=== PATIENT | male | born 1980 | race African-American/Black ===

== ENCOUNTER 2022-12-28 02:47 | Inpatient (IN) | payer OTHER ==
[2022-12-28] MEDS ORDERED: NA CHLORIDE 0.9% 1,000 ML ONE (03:20)
[2022-12-28 03:31] LABS: Hematocrit 37.5 % (39.6-49.0); MCV 83.7 fL (80-100); MPV 8.1 fL (7.6-11.3); RBC Red Blood Cell Count 4.48 M/uL (4.33-5.43)
[2022-12-28 03:34] LABS: Protime INR 1.13
[2022-12-28 03:59] LABS: ALT/SGPT 24 U/L (16-61); AST/SGOT 15 U/L (15-37); Albumin 3.9 g/dL (3.4-5.0); Alkaline Phosphatase 60 U/L (45-117); BUN Blood Urea Nitrogen 33 mg/dL (7-18); Bicarbonate 29 mEq/L (21-32); Bilirubin Total 0.3 mg/dL (0.2-1.0); Glomerular Filtration Rate 53 ml/min (=/>90); Glucose Level 137 mg/dL (74-106); Potassium 4.3 mEq/L (3.5-5.1); Protein, Total 8.5 g/dL (6.4-8.2); Sodium Level 132 mEq/L (136-145)
[2022-12-28 04:01] LABS: Bilirubin Direct < 0.1 mg/dL (0-0.2); Bilirubin Indirect, Calculated ND mg/dL (0.2-0.8)
[2022-12-28 04:29] LABS: Specific Gravity 1.016 (1.005-1.030); Urine Bacteria None Seen /HPF (<20); Urine Bilirubin NEGATIVE (Negative); Urine Blood 1+ (Negative); Urine Clarity Clear (Clear); Urine Color Light-Yellow (Yellow); Urine Glucose NEGATIVE (Negative); Urine Mucus Slight /HPF (None Seen); Urine Protein NEGATIVE (Negative); Urine Urobilinogen Normal (Normal); Urine pH 5.5 (5.0-7.0)
[2022-12-28 04:41] LABS: Barbiturates NEGATIVE (NEGATIVE); Benzodiazepines NEGATIVE (NEGATIVE); Cocaine NEGATIVE (NEGATIVE); METHAMPHETAM NEGATIVE (NEGATIVE); Methadone NEGATIVE (NEGATIVE); Opiates NEGATIVE (NEGATIVE); Phencyclidine NEGATIVE (NEGATIVE); THC Cannibis NEGATIVE (NEGATIVE)
--- NOTE | 2022-12-28 05:48 | EDPHYS ---
Physician Documentation [facility] Name: Flako Montesinos Age: 42 yrs Sex: Male : 1980 Arrival Date: 12/28/2022 Time: 02:47 Bed 2 Private MD: ED Physician Andrade Williamson HPI: 12/28 02:58 This 42 yrs old Black Male presents to ER via EMS with complaints of Lethargy. sp4 02:58 42-year-old black male presents with lethargy and poor responsiveness. Patient was sp4 found on his bunk bed last known normal about yesterday. Patient is responsive to painful stimuli but is nonverbal, HPI and ROS are limited secondary to patient's poor responsiveness. . Historical: - Allergies: 02:50 Unable to obtain; as6 - PMHx: 02:50 Unable to Obtain; as6 - Immunization history:: Adult Immunizations up to date. - Social history:: Smoking status: unknown. - Family history:: not pertinent. ROS: 02:58 Constitutional: Negative for fever, chills, and weight loss. sp4 02:58 All other systems are negative. 02:58 Unable to obtain ROS due to altered mental status. Exam: 02:58 Constitutional: This is a well developed, well nourished , and in no acute distress. sp4 Patient is responsive to pain and withdraws from pain. Handcuffs and leg irons are in place . Patient is dressed up in the skilled nursing garb. Head/Face: Normocephalic, atraumatic. Eyes: Pupils equal round and reactive to light, extra-ocular motions intact. Lids and lashes normal. Conjunctiva and sclera are not injected. Cornea within normal limits. Periorbital areas with no swelling, redness, or edema. ENT: Nares patent. No nasal discharge, no septal abnormalities noted. Tympanic membranes are normal and external auditory canals are clear. Oropharynx with no redness, swelling, or masses, exudates, or evidence of obstruction, uvula midline. Mucous membranes moist. Neck: Trachea midline, no thyromegaly or masses palpated, and no cervical lymphadenopathy. Supple, full range of motion without nuchal rigidity, or vertebral point tenderness. No Meningismus. Chest/axilla: Normal chest wall appearance and motion. Nontender with no deformity. No lesions are appreciated. Cardiovascular: Irregular rate. No gallops, murmurs, or rubs. Normal PMI, no JVD. No pulse deficits. Respiratory: Lungs have equal breath sounds bilaterally, clear to auscultation and percussion. No rales, rhonchi or wheezes noted. No increased work of breathing, no retractions or nasal flaring. Abdomen/GI: Soft, non-tender, with normal bowel sounds. No distension or tympany. No guarding or rebound. No evidence of tenderness throughout. Small umbilical hernia Back: No spinal tenderness. No costovertebral tenderness. Skin: Warm, dry with normal turgor. Normal color with no rashes, no lesions, and no evidence of cellulitis. MS/ Extremity: Pulses equal, no cyanosis. Neurovascular intact. Exam is limited secondary to obtunded state Neuro: Exam limited secondary to lethargic state, patient is responsive to painful stimuli 03:05 ECG was reviewed by the Attending Physician. Heart rate 70. Atrial fibrillation at the sp4 rate of 70. Premature ventricular complexes. Vital Signs: 02:51 BP 131 / 80; Pulse 88; Resp 12 S; Pulse Ox 96% on R/A; Weight 125 kg (M); as6 04:00 BP 134 / 75; Pulse 69; Resp 17 S; Pulse Ox 98% on 2 lpm NC; aa9 05:19 BP 123 / 75; Pulse 76; Resp 10 S; Pulse Ox 99% on 2 lpm NC; as6 05:20 Temp 97.3(TE); as6 07:00 BP 131 / 92; Pulse 63; Resp 10; Pulse Ox 95% ; bp Josette Coma Score: 02:58 Eye Response: to pain(2). Motor Response: withdraws from pain(4). Verbal Response: sp4 none(1). Total: 7. MDM: 03:05 Patient medically screened. sp4 05:41 Differential Diagnosis altered mental status, sepsis, flu. Data reviewed: vital signs, sp4 nurses notes, lab test result(s), EKG, radiologic studies, CT scan, ultrasound. 05:42 Consideration of Admission/Observation Patient was admitted/placed on observation. sp4 Escalation of care including admission/observation considered. Management of patient was discussed with the following: Hospitalist: Will discuss with [facility] hospitalist. ED course: CT head and C-spine reveals no acute intracranial hemorrhage. Unremarkable CT of the head without contrast. Chest x-ray revealed decreased lung volumes. Overcrowding pulmonary markings could be related to decreased lung volume. No definite focal areas of airspace consolidation. . 05:44 ED course: Laboratory evaluation revealed elevated creatinine. But otherwise no sp4 remarkable findings. Normal CBC. Exam reveals no neck stiffness, patient is able to move his hands and the also able to move his feet, remains nonverbal, no focal neurologic deficits on exam. Suspect poor cooperation with examination. . ED course: Since patient remains poorly responsive and nonverbal we will pursue transfer to [facility] for further evaluation consideration of MRI of the brain and EEG. Also consultation with neurologist.. 12/28 03:04 Order name: Acetaminophen; Complete Time: 05:34 sp4 12/28 03:04 Order name: Basic Metabolic Panel; Complete Time: 05:34 sp4 12/28 03:04 Order name: CBC with Diff; Complete Time: 05:34 sp4 12/28 03:04 Order name: ETOH Level; Complete Time: 05:34 sp4 12/28 03:04 Order name: Hepatic Function; Complete Time: 05:34 sp4 12/28 03:04 Order name: PT-INR; Complete Time: 05:34 sp4 12/28 03:04 Order name: Ptt, Activated; Complete Time: 05:34 sp4 12/28 03:04 Order name: Salicylate; Complete Time: 05:34 sp4 12/28 03:04 Order name: Urinalysis w/ reflexes; Complete Time: 05:34 sp4 12/28 03:04 Order name: Urine Drug Screen; Complete Time: 05:34 sp4 12/28 05:40 Order name: ABG; Complete Time: 06:05 sp4 12/28 05:42 Order name: SARS RAPID; Complete Time: 06:37 sp4 12/28 05:42 Order name: Influenza Screen (a \T\ B); Complete Time: 06:37 sp4 12/28 06:49 Order name: CBC with Automated Diff EDMS 12/28 06:49 Order name: CBC with Automated Diff EDMS 12/28 06:49 Order name: Comprehensive Metabolic Panel EDMS 12/28 06:49 Order name: Comprehensive Metabolic Panel EDMS 12/28 06:49 Order name: Lipid Profile EDMS 12/28 06:49 Order name: Lipid Profile [facility] 12/28 06:49 Order name: Magnesium [facility] 12/28 06:49 Order name: Magnesium [facility] 12/28 06:49 Order name: Phosphorus [facility] 12/28 06:49 Order name: Phosphorus [facility] 12/28 06:49 Order name: T4,Total EDMS 12/28 06:49 Order name: T4,Total [facility] 12/28 06:49 Order name: Thyroid Stimulating Hormone [facility] 12/28 06:49 Order name: Thyroid Stimulating Hormone [facility] 12/28 06:49 Order name: Troponin High Sensitivity [facility] 12/28 06:49 Order name: Troponin High Sensitivity [facility] 12/28 03:04 Order name: CT Head C Spine [facility] 12/28 03:04 Order name: Chest Single View XRAY [facility] 12/28 06:49 Order name: Echo with Doppler [facility] 12/28 03:04 Order name: EKG; Complete Time: 03:04 [facility] 12/28 06:49 Order name: Physical Therapy Consult [facility] 12/28 06:49 Order name: Speech Therapy Consult [facility] 12/28 06:49 Order name: NPO [facility] 12/28 06:49 Order name: EKG Electrocardiogram [facility] 12/28 06:49 Order name: EKG Electrocardiogram [facility] 12/28 03:04 Order name: EKG - Nurse/Tech; Complete Time: 03:04 4 12/28 03:04 Order name: IV Saline Lock; Complete Time: 03:04 4 12/28 03:04 Order name: Labs collected and sent; Complete Time: 03:09 EC:05 Rate is 70 beats/min. Rhythm is irregularly irregular, A fib with Occasional PVCs. QRS sp4 [place] is Normal. No ST changes noted. Clinical impression: Atrial Fibrillation. Interpreted by me. Administered Medications: 03:15 Drug: NS 0.9% IV 1000 ml Route: IV; Rate: 1 bolus; Site: right antecubital; as6 09:12 Follow up: IV Status: Completed infusion; IV Intake: 1000ml bp 05:48 Drug: Keppra IV 1000 mg Route: IV; Rate: bolus; Site: right antecubital; as6 09:12 Follow up: IV Status: Completed infusion; IV Intake: 100ml bp 07:15 Drug: NS 0.9% IV 1000 ml Route: IV; Rate: 125 ml/hr; Site: right antecubital; bp 09:12 Follow up: IV Status: Infusion continued upon admission bp Disposition Summary: 12/28/22 06:45 Hospitalization Ordered Hospitalization Status: Inpatient Admission sp4 Provider: Aimee Neal Location: Telemetry/MedSur (Inpatient) sp4 Condition: Stable(12/28/22 06:45) sp4 Problem: new(12/28/22 06:45) sp4 Symptoms: have improved(12/28/22 06:45) sp4 Bed/Room Type: Standard sp4 Room Assignment: [facility](12/28/22 13:58) dw Diagnosis - Altered mental status, unspecified(12/28/22 06:45) sp4 - Dehydration sp4 - Acute onset lethargy, acute metabolic encephalopathy sp4 Forms: - Medication Reconciliation Form sp4 - SBAR form sp4 Signatures: Dispatcher [employer] EDIvone Vasques RN RN dw Deni Fatima RN RN bp Slawson, Ashby, RN RN as6 Andrade Williamson MD MD sp4 Corrections: (The following items were deleted from the chart) 06:06 03:04 Suicide Screening ([place]) ordered. sp4 as6 06:44 05:47 Attending [facility] sp4 sp4 06:44 05:47 [facility]-System sp4 sp4 06:44 05:47 Higher level of care sp4 sp4 06:44 05:47 Stable sp4 sp4 06:44 05:47 new sp4 sp4 06:44 05:47 have improved sp4 sp4 06:44 05:47 Altered mental status, unspecified sp4 sp4 06:44 05:47 Lethargy, acute onset sp4 sp4 13:58 06:45 sp4 dw
--- NOTE | 2022-12-28 05:48 | ER ---
Nurse's Notes [facility] Name: Flako Montesinos Age: 42 yrs Sex: Male : 1980 Arrival Date: 12/28/2022 Time: 02:47 Bed 2 Private MD: Diagnosis: Altered mental status, unspecified;Dehydration;Acute onset lethargy, acute metabolic encephalopathy Presentation: 12/28 02:51 Chief complaint: EMS states: called out for unresponsive. unknown last known normal, pt as6 is responsive to painful stimuli. pt is an inmate, in handcuffs with guards at bedside. Coronavirus screen: At this time, the client does not indicate any symptoms associated with coronavirus-19. Ebola Screen: No symptoms or risks identified at this time. Initial Sepsis Screen: Does the patient meet any 2 criteria? No. Patient's initial sepsis screen is negative. Does the patient have a suspected source of infection? No. Patient's initial sepsis screen is negative. Risk Assessment: Do you want to hurt yourself or someone else? Patient reports no desire to harm self or others. Onset of symptoms is unknown. 02:51 Acuity: OCTAVIO 2 as6 02:51 Method Of Arrival: EMS: [facility] as6 Historical: - Allergies: 02:50 Unable to obtain; as6 - PMHx: 02:50 Unable to Obtain; as6 - Immunization history:: Adult Immunizations up to date. - Social history:: Smoking status: unknown. - Family history:: not pertinent. Screenin:10 [facility] ED Fall Risk Assessment (Adult) Score/Fall Risk Level 0 - 2 = Low Risk. Abuse as6 screen: Denies threats or abuse. Denies injuries from another. Nutritional screening: No deficits noted. Tuberculosis screening: No symptoms or risk factors identified. Assessment: 03:15 General: Appears in no apparent distress. Behavior is drowsy, quiet. Pain: Unable to as6 use pain scale. FLACC scale score is 0 out of 10. Neuro: Level of Consciousness is obtunded, Pupils are dilated. Cardiovascular: Capillary refill < 3 seconds Patient's skin is warm and dry. Cardiovascular: Rhythm is atrial fibrillation With PVC's. Respiratory: Respiratory effort is even, unlabored, Respiratory pattern is regular, symmetrical. 07:00 Reassessment: RECD REPORT FROM ARNEL PURVIS. 42YO BM P/W AMS AND DECREASED LOC. ADMIT IN bp PROCESS. Vital Signs: 02:51 BP 131 / 80; Pulse 88; Resp 12 S; Pulse Ox 96% on R/A; Weight 125 kg (M); as6 04:00 BP 134 / 75; Pulse 69; Resp 17 S; Pulse Ox 98% on 2 lpm NC; aa9 05:19 BP 123 / 75; Pulse 76; Resp 10 S; Pulse Ox 99% on 2 lpm NC; as6 05:20 Temp 97.3(TE); as6 07:00 BP 131 / 92; Pulse 63; Resp 10; Pulse Ox 95% ; bp Josette Coma Score: 02:58 Eye Response: to pain(2). Motor Response: withdraws from pain(4). Verbal Response: sp4 none(1). Total: 7. ED Course: 02:48 Patient arrived in ED. aa9 02:50 Arnel Gonzales, RN is Primary Nurse. as6 02:50 Arm band placed on. as6 02:54 Triage completed. as6 02:54 Bed in low position. Call light in reach. Side rails up X2. as6 02:58 Andrade Williamson MD is Attending Physician. sp4 03:10 Maintain EMS IV. Dressing intact. Good blood return noted. Site clean \T\ dry. Gauge \T\ as 6 site: 20g RAC. 03:16 Chest Single View XRAY In Process Unspecified. EDMS 03:34 CT Head C Spine In Process Unspecified. EDMS 04:17 Hayes cath inserted, using sterile technique, 16 Fr., by cafe site attendant, balloon inflated, to aa9 gravity drainage, urine specimen collected. returned clear yellow urine. Patient tolerated well. 05:50 Initiated transfer with [facility]. rv1 06:09 Influenza Screen (a \T\ B) Sent. aa9 06:09 SARS RAPID Sent. aa9 06:44 Aimee Neal MD is Hospitalizing Provider. sp4 09:11 Primary Nurse role handed off by Arnel Gonzales, YANIV eb 09:11 Deni Fatima, YANIV is Primary Nurse. bp 14:14 No provider procedures requiring assistance completed. Patient admitted, IV remains in bp place. Administered Medications: 03:15 Drug: NS 0.9% IV 1000 ml Route: IV; Rate: 1 bolus; Site: right antecubital; as6 09:12 Follow up: IV Status: Completed infusion; IV Intake: 1000ml bp 05:48 Drug: Keppra IV 1000 mg Route: IV; Rate: bolus; Site: right antecubital; as6 09:12 Follow up: IV Status: Completed infusion; IV Intake: 100ml bp 07:15 Drug: NS 0.9% IV 1000 ml Route: IV; Rate: 125 ml/hr; Site: right antecubital; bp 09:12 Follow up: IV Status: Infusion continued upon admission bp Medication: 02:54 VIS not applicable for this client. as6 Intake: 09:12 IV: 100ml; Total: 100ml. bp 09:12 IV: 1000ml; Total: 1100ml. bp Outcome: 05:47 ER care complete, transfer ordered by . sp4 06:45 Decision to Hospitalize by Provider. sp4 14:19 Admitted to Med/surg accompanied by tech, via stretcher, room 224, Report called to bp RANJANA PURVIS 14:19 Condition: stable 14:19 Instructed on the need for admit. 15:48 Patient left the ED. bp Signatures: Dispatcher [employer] EDDeni Gibson RN RN Philomena Hoang Ashby RN RN as6 Doreen Chávez, RN RN clint9 Jimmy, Lily [email or web address] Andrade Williamson MD MD sp4
[2022-12-28] MEDS ORDERED: NA CHLORIDE 0.9% 100 ML ONE (05:50)
[2022-12-28] MEDS ORDERED: LEVETIRACETAM 500 MG/5 ML VIAL IV ONE (05:50)
[2022-12-28 05:51] LABS: Arterial Blood Carboxyhemoglob 0.7 % (0-1.5); Blood Gas Oxyhemoglobin 95.2 % (94-97); Blood O2 Saturation 97.1 % (92-98.5)
[2022-12-28 06:34] LABS: SARS-CoV-2 Antigen Rapid Res Negative (Negative)
[2022-12-28] MEDS ORDERED: ONDANSETRON 4 MG/2 ML VIAL IV PRN (06:43)
[2022-12-28] MEDS ORDERED: IPRATROPIUM BROM 0.5MG/2.5ML NEB PRN (06:43)
[2022-12-28] MEDS ORDERED: ALBUTEROL 2.5 MG/3 ML NEB SOL NEB PRN (06:43)
[2022-12-28] MEDS: NA CHLORIDE 0.9% 1,000 ML IV SCH ×3 (07:00→20:03)
--- NOTE | 2022-12-28 07:25 | EKG ---
Test Date: 2022-12-28 Test Time: 02:51:13 Circuit Walker: WILFRIDO MEASUREMENT RESULTS: Intervals: Rate: 70 [place]: QRSD: 114 QT: 398 QTc: 429 [place]: P: [place]: QRS: 28 T: 17 INTERPRETIVE STATEMENTS: Atrial fibrillation with premature ventricular or aberrantly conducted complexes Abnormal ECG No previous ECG available for comparison Electronically Signed On 12-28-22 07:25:03 CDT by David Moon
[2022-12-28] MEDS: ASPIRIN EC 81 MG TAB PO SCH (09:00)
[2022-12-28 09:41] VITALS: BMI 5370.1
[2022-12-28] MEDS ORDERED: RIVAROXABAN 15 MG TABLET PO SCH (17:00)
[2022-12-28] MEDS ORDERED: ATORVASTATIN 20 MG TAB PO SCH (21:00)
[2022-12-29] MEDS: NA CHLORIDE 0.9% 1,000 ML IV SCH ×2 (05:12→09:40)
[2022-12-29 06:08] LABS: Absolute Lymphocytes (CBC) 1.4 K/uL (0.7-4.9); Hematocrit 42.1 % (39.6-49.0); Lymphocytes % 14.9 % (15.3-44.8); MCV 83.7 fL (80-100); MPV 8.4 fL (7.6-11.3); RBC Red Blood Cell Count 5.03 M/uL (4.33-5.43)
[2022-12-29 06:38] LABS: Albumin 3.8 g/dL (3.4-5.0); Bilirubin Total 0.6 mg/dL (0.2-1.0); Magnesium 2.5 mg/dL (1.6-2.4); Phosphorus 1.9 mg/dL (2.5-4.9); Potassium 3.8 mEq/L (3.5-5.1); Protein, Total 8.1 g/dL (6.4-8.2); T4,Total 10.7 ug/dL (4.5-12.1); Thyroid Stimulating Hormone 3.2 uIU/mL (0.358-3.740)
[2022-12-29 06:47] VITALS: BP 147/91; TEMP 97.5
[2022-12-29] MEDS: ASPIRIN EC 81 MG TAB PO SCH (09:00)
[2022-12-29] MEDS ORDERED: POTASSIUM CL SA 10 MEQ TAB PO ONE (09:00)
[2022-12-29] MEDS ORDERED: ENOXAPARIN 40 MG/0.4 ML SQ SCH (09:00)
[2022-12-29] MEDS: POTASS/SODIUM PHOSPHATE 1 PKT POWD.PACK PO SCH ×2 (09:01→09:02)
--- NOTE | 2022-12-29 09:05 | P.HP ---
Certification for Inpatient Patient admitted to: Inpatient With expected LOS: >2 Midnights Patient will require the following post-hospital care: None Practitioner: I am a practitioner with admitting privileges, knowledge of patient current condition, hospital course, and medical plan of care. Services: Services provided to patient in accordance with Admission requirements found in Title 42 Section 412.3 of the Code of Federal Regulations Patient History Date of Service: 12/28/22 Reason for admission: Altered mental status History of Present Illness: Patient is a 42-year-old gentleman came to the hospital with altered mentation. Patient is in usp and he is not waking up. Patient very lethargic. He seems to be fairly aware what is going on but then he becomes very obtunded. He does not really follow much commands well. But he does keep his arms up in the air and he make sure he moves him to where it does not hit him in the face. Patient was brought in from the usp. Patient was admitted to the hospital for further evaluation. Allergies Unable to Assess Allergy (Verified 12/28/22 09:33) Home Medications: Unobtainable 12/28/22 - Past Medical/Surgical History Past Medical History: Unable to obtain Past Surgical History: Unable to obtain - Family History Father Family History: Reviewed- Non-Contributory - Social History Smoking Status: Unknown if ever smoked Alcohol use: No CD- Drugs: No Place of Residence: Home Review of Systems is unable to be obtained Physical Examination - Vital Signs Temperature: 97.5 F Blood Pressure: 147/91 Pulse: 65 Respirations: 16 Pulse Ox (%): 98 - Physical Exam General: Other (unresponsive) HEENT: Atraumatic, PERRLA, Mucous membr. moist/pink, EOMI, Sclerae nonicteric Neck: Supple, 2+ carotid pulse no bruit, No LAD, Without JVD or thyroid abnormality Respiratory: Clear to auscultation bilaterally, Normal air movement Cardiovascular: Regular rate/rhythm, Normal S1 S2 Gastrointestinal: Normal bowel sounds, No tenderness Musculoskeletal: No tenderness Integumentary: No rashes Neurological: Other (Unable to examine) Lymphatics: No axilla or inguinal lymphadenopathy - Studies Microbiology Data (last 24 hrs): 12/28/22 06:09 Nasopharnyx Influenza Type A Antigen Screen - Final 12/28/22 06:09 Nasopharnyx Influenza Type B Antigen Screen - Final Assessment & Plan - Problems (Diagnosis) (1) Altered mental status Current Visit: Yes Status: Acute - Plan 1. MRI of the brain 2. Antiplatelet and statin therapy 3. Lipid profile 4. Physical therapy and speech therapy consultation 5. DVT prophylaxis 6. Neurochecks every 4 hours 7. Reassess stroke scale 8. GI and DVT prophylaxis Discharge Plan: Other Plan to discharge in: Greater than 2 days - Advance Directives Does patient have a Living Will: No Does patient have a Durable POA for Healthcare: No - Code Status/Comfort Care Code Status Assessed: Yes Code Status: Full Code Critical Care: No Time Spent Managing PTS Care (In Minutes): 45
[2022-12-29 11:16] VITALS: O2SAT 99
--- NOTE | 2022-12-29 13:04 | RAD REPORT ---
EXAM DESCRIPTION: CT - Head C Spine Mpr Wo Con - 12/28/2022 6:40 am CLINICAL HISTORY: 42 years, Male, CONFUSED COMPARISON: None. FINDINGS: Multiple transaxial tomograms of the brain were obtained from the base of the skull to the vertex without contrast. 2-D multiplanar reformats and the coronal and sagittal plane were performed and reviewed. This exam was performed according to our departmental dose-optimization protocol, which includes auto mated exposure control, adjustment of the mA and/or kV according to patient size and/or use of iterat marlin reconstruction technique. Brain parenchyma as well as the jennings and white matter differentiation demonstrate to be unremarkable. There is no midline shift and/or mass effect. There is no evidence for acute hemorrhage. There are n o focal areas of hypodensities. Lateral ventricles and cisterns displace normal appearance. No intr a or extra axial fluid collections were seen. The calvarium is intact with no evidence for fracture. The visualized portions of the paranasal sinuses and orbits demonstrate to be clear. IMPRESSION: No acute intracranial hemorrhage identified. Unremarkable CT scan of the head without contrast. Electronically signed by: Fei Bajwa MD 12/28/2022 4:03 AM CDT Due to temporary technical issues with the PACS/Fluency reporting system, reports are being signed by the in house radiologists without review as a courtesy to insure prompt reporting. The interpreting radiologist is fully responsible for the content of the report.
--- NOTE | 2022-12-29 13:06 | RAD REPORT ---
EXAM DESCRIPTION: RAD - Chest Single View - 12/28/2022 3:14 am CLINICAL HISTORY: 42 years, Male, syncope COMPARISON: None. FINDINGS: Single view of the chest was obtained portable. No prior films are available for compariso n. Day lung volume is decreased. The cardiomediastinal silhouette demonstrate to be unremarkable. The heart is not enlarged. The thoracic aorta is unremarkable. Overcrowding pulmonary markings could be related to decreased lung volume. No significant pleural effusions. No areas of consolidation or mass es are seen. The rest of the soft tissue and bony structures demonstrate to be unremarkable. IMPRESSION: Decreased lung volume. Overcrowding pulmonary markings could be related to decreased lung volume. No definitive focal areas of acute airspace disease. Electronically signed by: Fei Bajwa MD 12/28/2022 4:02 AM CDT Due to temporary technical issues with the PACS/Fluency reporting system, reports are being signed by the in house radiologists without review as a courtesy to insure prompt reporting. The interpreting radiologist is fully responsible for the content of the report.
--- NOTE | 2022-12-31 14:41 | EKG ---
Test Date: 2022-12-29 Test Time: 03:21:27 Transition Advisor: JERILYN MEASUREMENT RESULTS: Intervals: Rate: 51 UT: 168 QRSD: 92 QT: 456 QTc: 420 [place]: P: 68 UT: 168 QRS: 65 T: 53 INTERPRETIVE STATEMENTS: Sinus bradycardia Nonspecific T wave abnormality Abnormal ECG Compared to ECG 12/28/2022 02:51:13 T-wave abnormality now present Atrial fibrillation no longer present Ventricular premature complex(es) no longer present Electronically Signed On 12-31-22 14:38:24 CDT by Francisco Morris
== END 2022-12-29 12:39 | DRG 640 ==
LOC: ER 02:47 → ERHOLD 06:43 → 2ND 14:24
PROVIDERS: ADMIT Hospitalist; ATTEND Hospitalist
DX: E86.0 Dehydration (principal); G93.41 Metabolic encephalopathy; I48.91 Unspecified atrial fibrillation; I49.3 Ventricular premature depolarization; Z20.822 Contact with and (suspected) exposure to COVID-19
CPT/HCPCS: 36415; 51702; 70450; 71045; 72125; 80048; 80053; 80061; 80076; 80307; 81001; 82805; 83735; 84100; 84436; 84443; 84484; 85025; 85610; 85730; 87804; 87811; 93005; 96361; 96365; 96366; 99285; G0480; J1650; J1953; J7030